=== PATIENT | male | born 1995 | race Caucasian/White ===

== ENCOUNTER 2023-12-26 06:03 | Emergency (ER) | payer SELFPAY ==
[~2023-12-26] VITALS: Ht 170.2 cm; Wt 86.2 kg
[2023-12-26 06:29] VITALS: TEMP 98.1
[2023-12-26] MEDS ORDERED: LORAZEPAM 1 MG TABLET ONE (06:46)
[2023-12-26] MEDS: LORAZEPAM 1 MG TABLET PO ONE (06:49)
[2023-12-26 06:53] VITALS: BP 141/89
[2023-12-26 07:04] VITALS: O2SAT 98
== END 2023-12-26 07:14 | disposition home or self-care (01) ==
LOC: ER 06:05
DX: F19.10 Other psychoactive substance abuse, uncomplicated (principal); F17.200 Nicotine dependence, unspecified, uncomplicated; R00.0 Tachycardia, unspecified